=== PATIENT | male | born 1965 | race Caucasian/White ===

== ENCOUNTER 2019-06-05 09:02 | Observation (INO) | payer BC, MEDICAID, OTHER ==
[2019-06-05 10:00] LABS: APPEARANCE,URINE CLEAR; BILIRUBIN,URINE NEGATIVE (NEGATIVE); COLOR,URINE YELLOW; GLUCOSE, URINE NEGATIVE (NEGATIVE); KETONES,URINE NEGATIVE (NEGATIVE); LEUKOCYTE ESTERASE,URINE NEGATIVE (NEGATIVE); NITRITE,URINE NEGATIVE (NEGATIVE); PROTEIN,URINE NEGATIVE (NEGATIVE); URINE SPECIFIC GRAVITY 1.012; UROBILINOGEN,URINE NEGATIVE mg/dL (<2.0)
[2019-06-05 10:04] LABS: ABSOLUTE EOSINOPHILS # (AUTO) 0.1 10^3/uL (0.0-0.6); ABSOLUTE LYMPHOCYTES (AUTO) 1.4 10^3/uL (0.5-4.7); ABSOLUTE MONOCYTES (AUTO) 0.5 10^3/uL (0.1-1.4); ABSOLUTE NEUT (AUTO) 6.9 10^3/uL (1.7-8.2); BASOPHILS % (AUTO) 0.4 % (0-2); EOSINOPHILS % (AUTO) 0.6 % (0-6); HEMATOCRIT 45.8 % (37.9-51.0); HEMOGLOBIN 15.7 g/dL (13.5-17.0); LYMPHOCYTES % (AUTO) 15.7 % (13-45); MEAN CORPUSCULAR HEMOGLOBIN 30.5 pg (27.0-33.4); MEAN CORPUSCULAR HGB CONC 34.3 g/dL (32.0-36.0); MEAN CORPUSCULAR VOLUME 89 fl (80-97); MONOCYTES % (AUTO) 5.2 % (3-13); PLATELET COUNT 178 10^3/uL (150-450); RED BLOOD COUNT 5.14 10^6/uL (4.35-5.55); RED CELL DISTRIBUTION WIDTH 13.9 % (11.5-14.0); SEGMENTED NEUTROPHILS % (AUTO) 78.1 % (42-78); TOTAL CELLS COUNTED % (AUTO) 100 %; WHITE BLOOD COUNT 8.8 10^3/uL (4.0-10.5)
[2019-06-05 10:17] LABS: ALBUMIN 4.4 g/dL (3.5-5.0); ALKALINE PHOSPHATASE 88 U/L (38-126); ANION GAP 11 (5-19); ASPARTATE AMINO TRANSFERASE 30 U/L (17-59); BILIRUBIN,DIRECT 0.3 mg/dL (0.0-0.4); BILIRUBIN,TOTAL 0.5 mg/dL (0.2-1.3); BLOOD UREA NITROGEN 20 mg/dL (7-20); CALCIUM 9.2 mg/dL (8.4-10.2); CARBON DIOXIDE 24 mmol/L (22-30); CHLORIDE 107 mmol/L (98-107); GLUCOSE 124 mg/dL (75-110); POTASSIUM 4.2 mmol/L (3.6-5.0); TOTAL PROTEIN 7.6 g/dL (6.3-8.2)
[2019-06-05] MEDS ORDERED: MORPHINE SULFATE 10 MG/ML INJ IV ONE (10:52)
[2019-06-05] MEDS ORDERED: ONDANSETRON HCL INJ/PF 4 MG/2 ML SDV IV ONE (10:53)
--- NOTE | 2019-06-05 10:56 | ER Document Report ---
ED GI/ - General Chief Complaint: Abdominal Pain Stated Complaint: ABDOMINAL PAIN Time Seen by Provider: 06/05/19 10:44 Primary Care Provider: RAQUEL ESPARZA MD [Primary Care Provider] - Follow up as needed Notes: CHIEF COMPLAINT: Right upper quadrant pain since 4 this morning HPI: 53-year-old male with history of cholelithiasis presenting to the emergency department complaining of severe right upper quadrant pain with nausea that began around 4 AM. Patient states it feels similar to his prior gallbladder attack. States he went to a hospital in [place] 2 months ago and had an ultrasound that showed gallstones. Patient states he was scheduled for surgery but canceled the surgery. Patient states he has an appointment with Dr. Grace next week about his gallbladder. Patient states he was watching the football game last night and was eating cheesecake and hot dogs and believes this may have caused his problem ROS: See HPI - all other systems were reviewed and are otherwise negative Constitutional: no fever Eyes: no drainage, no blurred vision ENT: no runny nose, no sore throat Cardiovascular: no chest pain Resp: no SOB, no cough GI: no vomiting, no diarrhea, + abdominal pain, + nausea : no dysuria Integumentary: no rash Allergy: no hives Musculoskeletal: no extremity pain or swelling Neurological: no numbness/tingling, no weakness MEDICATIONS: I agree with the patient medications as charted by the RN. ALLERGIES: I agree with the allergies as charted by the RN. PAST MEDICAL HISTORY/PAST SURGICAL HISTORY: Reviewed and agree as charted by RN. SOCIAL HISTORY: Reviewed and agree as charted by RN. FAMILY HISTORY: No significant familial comorbid conditions directly related to patient complaint EXAM: Reviewed vital signs as charted by RN. CONSTITUTIONAL: Alert and oriented and responds appropriately to questions. Well-appearing; well-nourished, moderately comfortable secondary to pain HEAD: Normocephalic; atraumatic EYES: PERRL; Conjunctivae clear, sclerae non-icteric ENT: normal nose; no rhinorrhea; moist mucous membranes; pharynx without lesions noted, no uvula edema or deviation, no tonsillar hypertrophy, phonation normal NECK: Supple without meningismus; non-tender; no cervical lymphadenopathy, no masses CARD: RRR; no murmurs, no clicks, no rubs, no gallops; symmetric distal pulses RESP: Normal chest excursion without splinting or tachypnea; breath sounds clear and equal bilaterally; no wheezes, no rhonchi, no rales, pulse oximetry 98% on room air not hypoxic ABD/GI: Normal bowel sounds; non-distended; soft, moderately tender in the right upper quadrant with a positive Michelle sign. Mild tenderness in the epigastric region on palpation. No tenderness of the right lower quadrant on palpation; no palpable organomegaly or masses. BACK: The back appears normal and is non-tender to palpation, there is no CVA tenderness EXT: Normal ROM in all joints; non-tender to palpation; no cyanosis, no effusions, no edema SKIN: Normal color for age and race; warm; dry; good turgor; no acute lesions noted NEURO: Moves all extremities equally; Motor and sensory function intact PSYCH: The patient's mood and manner are appropriate. Grooming and personal hygiene are appropriate. MDM: 53-year-old male presenting with constant pain in the right upper quadrant since 4 AM. He took a tramadol which had been prescribed previously for gallstone pain around 5 AM without significant resolution of his discomfort. No chest pain shortness of breath. Patient has reproducible pain in the right upper quadrant region. Initial screening labs drawn by triage process did not show acute emergent abnormalities. No significant leukocytosis or elevation of liver functions or lipase. Will obtain ultrasound to evaluate for obstructing stone given his continuing pain. Patient is requesting pain medicine at this time - Related Data Allergies/Adverse Reactions: No Known Allergies Allergy (Unverified 06/05/19 10:30) Home Medications: Lipitor, PRN Tramadol Past Medical History - Social History Smoking Status: Former Smoker Family History: Reviewed & Not Pertinent Patient has suicidal ideation: No Patient has homicidal ideation: No - Past Medical History Cardiac Medical History: Reports: Hx Hypercholesterolemia Past Surgical History: Reports: Hx Orthopedic Surgery - finger, Hx Tonsillectomy Physical Exam - Vital signs Vitals: Temp Pulse Resp BP Pulse Ox 98 F 82 18 160/87 H 98 06/05/19 09:06 06/05/19 09:06 06/05/19 09:06 06/05/19 09:06 06/05/19 09:06 Course - Re-evaluation Re-evalutation: 06/05/19 12:04 Patient has been ultrasound awaiting the report. While I was in the room he asked me to evaluate his right fourth finger. He cut the tip of the finger on glass yesterday. He has a small 0.8 cm superficial wound on the distal tip of the finger on the volar pad. No palpable foreign body he is concerned about foreign body states the fingers have been crushed previously he has minimal feeling. Will obtain x-ray to evaluate for foreign body. Will update patient's tetanus status 06/05/19 12:22 Patient noted to have acute cholecystitis on ultrasound. Discussed with attending Dr. Fonseca. Discussed with the patient, he is n.p.o. Will order preop chest x-ray and EKG. Discussed with Dr. Pitts, requests antibiotics, penicillin of choice. Will come see patient - Vital Signs Vital signs: Temp Pulse Resp BP Pulse Ox 98 F 82 18 160/87 H 98 06/05/19 09:06 06/05/19 09:06 06/05/19 09:06 06/05/19 09:06 06/05/19 09:06 - Laboratory Result Diagrams: 06/05/19 09:40 06/05/19 09:40 Laboratory results interpreted by me: 06/05/19 06/05/19 06/05/19 09:40 09:40 09:40 Seg Neutrophils % 78.1 H Glucose 124 H Urine Blood SMALL H Discharge - Discharge Clinical Impression: Acute cholecystitis due to biliary calculus Condition: Stable Disposition: ADMITTED INPATIENT Admitting Provider: Surgicalist - Angel Pitts MD Unit Admitted: Surgical Floor Referrals: RAQUEL ESPARZA MD [Primary Care Provider] - Follow up as needed
[2019-06-05] MEDS ORDERED: GLYCOPYRROLATE 1 MG/5 ML VIAL ONE (12:01)
[2019-06-05] MEDS ORDERED: SUCCINYLCHOLINE CHLORIDE INJ 200 MG/10 ML VIAL ONE (12:01)
[2019-06-05] MEDS ORDERED: NEOSTIGMINE METHYLSULFATE 10 MG/10 ML VIAL ONE (12:01)
[2019-06-05] MEDS ORDERED: ROCURONIUM BROMIDE INJ 50 MG/5 ML VIAL IV ONE (12:01)
[2019-06-05] MEDS ORDERED: DEXAMETHASONE SOD PHOSPHATE INJ 4 MG/1 ML VIAL ONE (12:01)
[2019-06-05] MEDS ORDERED: ONDANSETRON HCL INJ/PF 4 MG/2 ML SDV ONE (12:01)
[2019-06-05] MEDS ORDERED: DIPH/PERTUSS(ACELL)/TETANUS VAC/PF 0.5 ML SYR (>=10YO) IM ONE (12:03)
--- NOTE | 2019-06-05 12:08 | RADIOLOGY REPORT (SQ) ---
EXAM DESCRIPTION: U/S ABDOMEN LIMITED W/O DOP COMPLETED DATE/TIME: 06/05/2019 11:56 am REASON FOR STUDY: ruq pain cholelithiasis COMPARISON: None. TECHNIQUE: Dynamic and static grayscale images acquired of the abdomen and recorded on PACS. Additio nal selected color Doppler and spectral images recorded. LIMITATIONS: Body habitus, midline bowel gas. FINDINGS: PANCREAS: Difficult to visualize due to midline bowel gas. LIVER: Normal size, diffuse increased echogenicity from fatty infiltration/diffuse hepatocellular dis ease. No focal masses. No intrahepatic biliary ductal dilatation LIVER VASCULATURE: Normal directional flow of the main portal vein and hepatic veins. GALLBLADDER: Distended with sludge and stones. Diffuse gallbladder wall thickening without perichole cystic fluid. There is a 2 cm stone in the gallbladder neck, unchanged in position between supine an d decubitus views ULTRASOUND-DETECTED HARDY'S SIGN: Negative. INTRAHEPATIC DUCTS AND COMMON DUCT: No intrahepatic biliary ductal dilatation. Common bile duct at t he rola hepatis difficult to visualize related to shadowing 2 cm stone in the gallbladder neck INFERIOR VENA CAVA: Not well seen AORTA: Not well seen RIGHT KIDNEY: Normal size. Normal echogenicity. No solid or suspicious masses. No hydronephrosis. No calcifications. PERITONEAL AND RIGHT PLEURAL SPACE: No ascites or effusions. OTHER: No other significant findings. IMPRESSION: 2 cm stone in the gallbladder neck. Diffuse gallbladder wall distention with sludge and gallbladder wall thickening. No pericholecystic fluid. Findings worrisome for acute cholecystitis TECHNICAL DOCUMENTATION: JOB ID: [id number] [employer]- All Rights Reserved Reading location - IP/workstation name: [email or web address]
[2019-06-05] MEDS ORDERED: NORMAL SALINE 1000 ML 1,000 ML IV ONE (12:15)
[2019-06-05] MEDS ORDERED: PIPERACILLIN/TAZOBACTAM 3.375 GM VIAL IV ONE ×2 (12:23→23:58)
[2019-06-05] MEDS ORDERED: MORPHINE SULFATE 10 MG/ML INJ IV PRN ×2 (13:18→17:54)
[2019-06-05] MEDS ORDERED: ONDANSETRON HCL INJ/PF 4 MG/2 ML SDV IV PRN (13:18)
[2019-06-05] MEDS ORDERED: DEXTROSE 40% GEL 15 GM TUBE PO PRN ×2 (13:18)
[2019-06-05] MEDS ORDERED: DEXTROSE 50%-WATER 25 GM/50 ML DISP.SYRIN IV PRN ×2 (13:18)
[2019-06-05] MEDS ORDERED: GLUCAGON,HUMAN RECOMB 1 MG INJ SUBCUT PRN (13:18)
--- NOTE | 2019-06-05 13:41 | RADIOLOGY REPORT (SQ) ---
EXAM DESCRIPTION: HAND RIGHT 3 VIEWS COMPLETED DATE/TIME: 06/05/2019 1:21 pm REASON FOR STUDY: eval FB COMPARISON: None. EXAM PARAMETERS: NUMBER OF VIEWS: Three views. TECHNIQUE: AP, lateral and oblique radiographic images acquired of the right hand. LIMITATIONS: None. FINDINGS: MINERALIZATION: Normal. BONES: No acute fracture or dislocation. No worrisome bone lesions. JOINTS: No effusions. SOFT TISSUES: Focal soft tissue swelling, ulnar aspect right 4th finger tip. No soft tissue gas or r adiopaque foreign body. No underlying bony abnormality OTHER: No other significant finding. IMPRESSION: Focal soft tissue swelling, ulnar aspect right 4th finger tip. No soft tissue gas or ra diopaque foreign body. No underlying bony abnormality TECHNICAL DOCUMENTATION: JOB ID: [id number] [employer]- All Rights Reserved Reading location - IP/workstation name: [email or web address]
--- NOTE | 2019-06-05 13:42 | RADIOLOGY REPORT (SQ) ---
EXAM DESCRIPTION: CHEST SINGLE VIEW COMPLETED DATE/TIME: 06/05/2019 1:21 pm REASON FOR STUDY: preop COMPARISON: None. EXAM PARAMETERS: NUMBER OF VIEWS: One view. TECHNIQUE: Single frontal radiographic view of the chest acquired. RADIATION DOSE: NA LIMITATIONS: None. FINDINGS: LUNGS AND PLEURA: No opacities, masses or pneumothorax. No pleural effusion. MEDIASTINUM AND HILAR STRUCTURES: No masses. Contour normal. HEART AND VASCULAR STRUCTURES: Heart normal in size. Normal vasculature. BONES: No acute findings. HARDWARE: None in the chest. OTHER: No other significant finding. IMPRESSION: NO ACUTE RADIOGRAPHIC FINDING IN THE CHEST. TECHNICAL DOCUMENTATION: JOB ID: [id number] [employer]- All Rights Reserved Reading location - IP/workstation name: [email or web address]
--- NOTE | 2019-06-05 14:43 | PDOC H&P ---
History of Present Illness Admission Date/PCP: 06/05/19 12:48 RAQUEL ESPARZA MD Patient complains of: Right upper quadrant pain, nausea, vomiting. History of Present Illness: TUCKER SCHWARTZ is a 53 year old male with known gallbladder problems. The patient was scheduled to have cholecystectomy by Dr. Grace in the near future. The patient woke up this morning, with sharp, stabbing, unrelenting right upper quadrant pain. It radiates around to his right flank and back. He rates it 9 out of 10. Patient has not been able to eat anything today. He did have small amounts of clear liquids, but began having severe nausea and vomiting. He denies fevers or chills. He also denies chest pain, shortness of breath, dizziness, orthostasis, melena, hematochezia, hematemesis, blurry vision, seizures, or recent unexplained weight loss. Nothing makes his pain better. Palpation and movement make his pain worse. Past Medical History Cardiac Medical History: Reports: Hyperlipidema Past Surgical History Past Surgical History: Reports: Orthopedic Surgery - finger, Tonsillectomy Social History Smoking Status: Former Smoker Hx Recreational Drug Use: No Hx Prescription Drug Abuse: No Family History Family History: Reviewed & Not Pertinent Parental Family History Reviewed: Yes Children Family History Reviewed: Yes Sibling(s) Family History Reviewed.: Yes Medication/Allergy Home Medications: Atorvastatin Calcium [Lipitor 10 mg Tablet] 10 mg PO QHS 06/05/19 Fluticasone Propionate [Flonase Nasal [place] 50 Mcg/[place] 16 gm] 1 spray NASL DAILYP PRN 06/05/19 Loratadine [Claritin 10 mg Tablet] 10 mg PO DAILYP PRN 06/05/19 Multivitamin [Multivitamins] 1 each PO DAILY 06/05/19 Allergies/Adverse Reactions: No Known Allergies Allergy (Unverified 06/05/19 10:30) Review of Systems Constitutional: ABSENT: anorexia, chills, fatigue, fever(s), headache(s), night sweats, weakness Eyes: ABSENT: visual disturbances Ears: ABSENT: hearing changes Nose, Mouth, and Throat: ABSENT: sore throat Cardiovascular: ABSENT: chest pain Respiratory: ABSENT: cough, dyspnea Gastrointestinal: PRESENT: abdominal pain, bloating, nausea, vomiting. ABSENT: heartburn, hematemesis, hematochezia, melena Genitourinary: ABSENT: dysuria Musculoskeletal: PRESENT: back pain Integumentary: ABSENT: pruritus, rash Neurological: ABSENT: confusion, convulsions, dizziness Psychiatric: ABSENT: anxiety Endocrine: ABSENT: cold intolerance, heat intolerance Hematologic/Lymphatic: ABSENT: easy bleeding, easy bruising Physical Exam Vital Signs: Temp Pulse Resp BP Pulse Ox 98 F 82 18 160/87 H 98 06/05/19 09:06 06/05/19 09:06 06/05/19 09:06 06/05/19 09:06 06/05/19 09:06 Intake & Output 06/04/19 06/05/19 06/06/19 06:59 06:59 06:59 Weight 107.2 kg General appearance: PRESENT: obese Head exam: PRESENT: atraumatic, normocephalic Eye exam: PRESENT: EOMI, PERRLA. ABSENT: scleral icterus Mouth exam: PRESENT: moist, neck supple Neck exam: ABSENT: meningismus, tenderness, thyromegaly, tracheal deviation Respiratory exam: PRESENT: clear to auscultation koki, unlabored. ABSENT: chest wall tenderness, tachypnea, wheezes Cardiovascular exam: PRESENT: RRR Pulses: PRESENT: normal radial pulses Vascular exam: ABSENT: pallor GI/Abdominal exam: PRESENT: Michelle's sign, soft, tenderness - Right upper quadrant, other - Obese. ABSENT: distended Rectal exam: PRESENT: deferred Extremities exam: ABSENT: clubbing Musculoskeletal exam: ABSENT: deformity Neurological exam: PRESENT: alert, awake, oriented to person, oriented to place Psychiatric exam: ABSENT: agitated, anxious, depressed Focused psych exam: ABSENT: delusional Skin exam: ABSENT: cyanosis, erythema, jaundice Results Laboratory Results: 06/05/19 09:40 06/05/19 09:40 06/05/19 06/05/19 06/05/19 09:40 09:40 09:40 WBC 8.8 RBC 5.14 Hgb 15.7 Hct 45.8 MCV 89 MCH 30.5 MCHC 34.3 RDW 13.9 Plt Count 178 Seg Neutrophils % 78.1 H Sodium 141.9 Potassium 4.2 Chloride 107 Carbon Dioxide 24 Anion Gap 11 BUN 20 Creatinine 1.16 Est GFR ( Amer) > 60 Glucose 124 H Calcium 9.2 Total Bilirubin 0.5 AST 30 Alkaline Phosphatase 88 Total Protein 7.6 Albumin 4.4 Lipase 114.1 Urine Color YELLOW Urine Appearance CLEAR Urine pH 5.0 Ur Specific [place] 1.012 Urine Protein NEGATIVE Urine Glucose (UA) NEGATIVE Urine Ketones NEGATIVE Urine Blood SMALL H Urine Nitrite NEGATIVE Ur Leukocyte Esterase NEGATIVE Urine WBC (Auto) 0 Urine RBC (Auto) 0 Impressions: Abdomen Ultrasound 06/05/19 10:53 IMPRESSION: 2 cm stone in the gallbladder neck. Diffuse gallbladder wall distention with sludge and gallbladder wall thickening. No pericholecystic fluid. Findings worrisome for acute cholecystitis Assessment & Plan - Diagnosis (1) Acute cholecystitis due to biliary calculus Is this a current diagnosis for this admission?: Yes - Plan Summary Plan Summary: This a 53-year-old male with evidence of gallbladder wall thickening, gallstones, and persistent right upper quadrant pain. Patient appears to have acute cholecystitis. I will admit the patient to the hospital, start him on Zosyn, and plan for surgical intervention in the near future. Lap versus open cholecystectomy either today or tomorrow, as scheduling allows. This has been discussed with the patient, and he is in agreement with the treatment plan. Risk/benefits of surgery discussed, informed consent obtained, and all questions answered.
[2019-06-05] MEDS: KETOROLAC TROMETHAMINE INJ/PF 30 MG/1 ML SDV IV SCH ×2 (14:59→21:54)
[2019-06-05] MEDS: DEXTROSE 5%-LACTATED RINGERS 1,000 ML IV PRN ×2 (17:40→22:04)
[2019-06-05] MEDS ORDERED: FENTANYL CITRATE INJ/PF 100 MCG/2 ML AMPUL IV PRN ×3 (17:54)
[2019-06-05] MEDS ORDERED: PROMETHAZINE HCL INJ 25 MG/1 ML VIAL IV PRN (17:54)
[2019-06-05] MEDS ORDERED: DIPHENHYDRAMINE HCL 50 MG/ML VIAL IV PRN (17:54)
[2019-06-05] MEDS ORDERED: MEPERIDINE HCL/PF INJ 25 MG/1 ML DISP.SYRIN IV PRN (17:54)
[2019-06-05] MEDS ORDERED: HYDROMORPHONE HCL INJ/PF 2 MG/ML AMPULE ONE (18:49)
[2019-06-05] MEDS ORDERED: MIDAZOLAM 2 MG/2 ML INJ ONE (18:49)
[2019-06-05] MEDS ORDERED: PROPOFOL INJ 200 MG/20 ML VIAL IV ONE (18:49)
[2019-06-05] MEDS ORDERED: FENTANYL CITRATE INJ/PF 250 MCG/5 ML AMPULE ONE (18:49)
[2019-06-05] MEDS ORDERED: BUPIVACAINE HCL 0.25 % INJ/PF (2.5 MG/1 ML) 30 ML VIAL ONE (19:10)
--- NOTE | 2019-06-05 21:27 | EKG REPORT ---
SEVERITY:- BORDERLINE ECG - SINUS RHYTHM BORDERLINE T ABNORMALITIES, INFERIOR LEADS : Confirmed by: Giselle Velazquez MD 05-Jun-2019 21:26:43
[2019-06-05] MEDS: FAMOTIDINE INJ/PF 20 MG/2 ML SDV IV SCH (21:53)
[2019-06-05] MEDS ORDERED: PIPERACILLIN/TAZOBACTAM 3.375 GM VIAL IV PRN (23:20)
[2019-06-05] MEDS ORDERED: PIPERACILLIN SODIUM/TAZOBACTAM 3.375 GM in NORMAL SALINE 100 ML IV ONE (23:59)
--- NOTE | 2019-06-06 03:43 | Operative Report ---
Nonrecallable Operative Report DATE OF SURGERY: 06/05/19 PREOPERATIVE DIAGNOSIS: Acute cholecystitis POSTOPERATIVE DIAGNOSIS: Same as above OPERATION: Laparoscopic cholecystectomy SURGEON: SADE NAPIER ANESTHESIA: GA TISSUE REMOVED OR ALTERED: Gallbladder COMPLICATIONS: None apparent ESTIMATED BLOOD LOSS: 30 cc PROCEDURE: Drains/implants: None. Procedure in detail: After informed consent was obtained, the patient was brought into the operating room and laid in the supine position. The area of the abdomen was prepped and draped in a normal sterile fashion. A supraumbilical incision was created with a 15 blade scalpel. Dissection was carried through the subcutaneous tissues using sharp and blunt dissection. The cicatrix was identified, grasped with a Kasi clamp, and retracted upwards. The linea alba fascia was incised sharply, the abdomen was entered sharply. The balloon trocar was inserted, and pneumoperitoneum was achieved. A subxiphoid 5 mm port was placed under direct laparoscopic visualization. 2 more 5 mm ports were placed in the right upper quadrant in similar fashion. Atraumatic graspers were placed through the 5 mm ports. The gallbladder was retracted cephalad and laterally. It was tense and distended. It had active cholecystitis. Dissection was begun in the triangle of [place]. The cystic duct and cystic artery were fully visualized and skeletonized, seeing the liver through the triangle. Once the critical view of safety was obtained the cystic artery was clipped and cut with laparoscopic instruments. The cystic duct was somewhat dilated, and was felt to be too large to be controlled adequately with laparoscopic clips. In light of this, a PDS Endoloop would be used to secure the cystic duct. The gallbladder was dissected free of the liver using a mixture of blunt dissection and electrocautery. Once the gallbladder was completely elevated away from the liver, a PDS Endoloop was secured around the cystic duct. The gallbladder was then amputated and placed into an Endo Catch bag. The camera was reinserted. The hilum was inspected. It was found to be free of any leakage of blood or bile. Once this was confirmed, the 5 mm trochars were removed under direct laparoscopic visualization. The supraumbilical trocar was removed, and pneumoperitoneum was relieved. The supraumbilical fascia was closed using 0 Vicryl suture in [id number] fashion. The overlying skin was closed using 4-0 Vicryl Rapide suture in subcuticular fashion. All sponge, instrument, and needle counts were correct x2. Condition: Stable.
[2019-06-06] MEDS: KETOROLAC TROMETHAMINE INJ/PF 30 MG/1 ML SDV IV SCH ×2 (05:32→13:33)
[2019-06-06] MEDS: FAMOTIDINE INJ/PF 20 MG/2 ML SDV IV SCH (09:24)
[2019-06-06 09:32] LABS: ABSOLUTE LYMPHOCYTES (AUTO) 0.8 10^3/uL (0.5-4.7); ABSOLUTE MONOCYTES (AUTO) 0.5 10^3/uL (0.1-1.4); ABSOLUTE NEUT (AUTO) 9.3 10^3/uL (1.7-8.2); HEMATOCRIT 41.1 % (37.9-51.0); HEMOGLOBIN 14.1 g/dL (13.5-17.0); LYMPHOCYTES % (AUTO) 7.9 % (13-45); MEAN CORPUSCULAR HEMOGLOBIN 30.6 pg (27.0-33.4); MEAN CORPUSCULAR HGB CONC 34.4 g/dL (32.0-36.0); MEAN CORPUSCULAR VOLUME 89 fl (80-97); MONOCYTES % (AUTO) 4.6 % (3-13); PLATELET COUNT 175 10^3/uL (150-450); RED BLOOD COUNT 4.62 10^6/uL (4.35-5.55); RED CELL DISTRIBUTION WIDTH 14.2 % (11.5-14.0); SEGMENTED NEUTROPHILS % (AUTO) 87.5 % (42-78); TOTAL CELLS COUNTED % (AUTO) 100 %; WHITE BLOOD COUNT 10.7 10^3/uL (4.0-10.5)
[2019-06-06 10:11] LABS: ALBUMIN 3.8 g/dL (3.5-5.0); ALKALINE PHOSPHATASE 47 U/L (38-126); ANION GAP 7 (5-19); ASPARTATE AMINO TRANSFERASE 53 U/L (17-59); BILIRUBIN,DIRECT 0.2 mg/dL (0.0-0.4); BILIRUBIN,TOTAL 0.7 mg/dL (0.2-1.3); BLOOD UREA NITROGEN 12 mg/dL (7-20); CALCIUM 8.6 mg/dL (8.4-10.2); CARBON DIOXIDE 26 mmol/L (22-30); CHLORIDE 107 mmol/L (98-107); GLUCOSE 128 mg/dL (75-110); POTASSIUM 4.3 mmol/L (3.6-5.0); TOTAL PROTEIN 6.6 g/dL (6.3-8.2)
[2019-06-06] MEDS: DEXTROSE 5%-LACTATED RINGERS 1,000 ML IV PRN (13:34)
[2019-06-06 16:09] VITALS: BP 160/87
[2019-06-06] MEDS ORDERED: PIPERACILLIN SODIUM/TAZOBACTAM 3.375 GM in NORMAL SALINE 100 ML IV ONE (20:00)
== END 2019-06-06 16:25 | disposition home or self-care (01) ==
LOC: ER 09:02 → EH 12:48 → INTOOBSV 12:48 → 5 15:10
PROVIDERS: ATTEND Surgery
DX: K80.10 Calculus of gallbladder with chronic cholecystitis without obstruction (principal); E78.5 Hyperlipidemia, unspecified; E66.9 Obesity, unspecified; S61.214A Laceration without foreign body of right ring finger without damage to nail, initial encounter; W25.XXXA Contact with sharp glass, initial encounter; Z87.891 Personal history of nicotine dependence; Z79.899 Other long term (current) drug therapy; Z23 Encounter for immunization
CPT/HCPCS: 93005; 99284; 90471; 96374; 96375; 36415 ×2; 83690; 85025 ×2; 80053 ×2; 81001; 88304 ×2; 71045; 73130; 76705; 90715; 93010; 00790; 47562; J2250; J3490 ×2; J1100; J3010; J1885 ×2; J2270; J2710; J1170; J0330; J2405; J7121 ×2; J7030; J2704; S0028 ×2; J2543 ×2